=== PATIENT | female | born 1960 ===

== ENCOUNTER 2023-07-17 06:15 | Day surgery (SDC) | payer BC, SELFPAY ==
[2023-07-17] VITALS (9 sets, daily range): BP systolic 98–142; BP diastolic 54–87; BMI 26.4
[2023-07-17] MEDS: Pyridium 200 MG PO (06:42)
[2023-07-17] MEDS: NORMOSOL-R 1000 IV (06:43)
== END 2023-07-17 09:56 | disposition home or self-care (01) ==
LOC: SDS 06:15
PROVIDERS: ATTENDING PHYSICIAN Obstetrics & Gynecology
DX: T83.721A Exposure of implanted vaginal mesh into vagina, initial encounter (principal); Y76.2 Prosthetic and other implants, materials and accessory obstetric and gynecological devices associated with adverse incidents; N39.3 Stress incontinence (female) (male)
CPT/HCPCS: 57287; 88304; J1580